=== PATIENT | female | born 1995 | race Caucasian/White ===

== ENCOUNTER 2018-07-11 08:36 | Emergency (ER) | payer BC ==
[2018-07-11] MEDS ORDERED: ACETAMINOPHEN 500 MG 500 MG TAB PO ONE (09:01)
[2018-07-11] MEDS ORDERED: ACETAMINOPHEN 500 MG 500 MG TAB ONE (09:03)
[2018-07-11] MEDS ORDERED: CYCLOBENZAPRINE 10 MG TAB PO ONE (09:06)
[2018-07-11] MEDS ORDERED: CYCLOBENZAPRINE 10 MG TAB ONE (09:07)
[2018-07-11 09:20] VITALS: BP 131/81; PULSE 101; RESP 16; TEMP 98.3; O2SAT 100
[2018-07-11 09:31] LABS: APPEARANCE,URINE Clear; BILIRUBIN,URINE NEGATIVE (NEGATIVE); COLOR,URINE Dark yellow; GLUCOSE, URINE (UA) NEGATIVE (NEGATIVE); KETONES,URINE NEGATIVE (NEGATIVE); LEUKOCYTE ESTERASE ,URINE NEGATIVE (NEGATIVE); NITRATE,URINE NEGATIVE (NEGATIVE); OCCULT BLOOD,URINE NEGATIVE (NEG-TRACE); PH,URINE 6.5; UROBILINOGEN,URINE 0.2 (0.2-1.0 EU)
[2018-07-11 09:36] LABS: BACTERIA 2+ (< 1+); CRYSTALS NEGATIVE (0-3 AVE/HPF); RBC,URINE 0-2 (0-3AV/HPF)
[2018-07-11] MEDS ORDERED: KETOROLAC TROMETHAMINE 30 MG/ML SOL IM ONE (10:06)
[2018-07-11] MEDS ORDERED: KETOROLAC TROMETHAMINE 30 MG/ML SOL ONE (10:08)
== END 2018-07-11 11:10 | disposition home or self-care (01) ==
LOC: ED 08:36
DX: S13.4XXA Sprain of ligaments of cervical spine, initial encounter (principal); V43.52XA Car driver injured in collision with other type car in traffic accident, initial encounter; S09.90XA Unspecified injury of head, initial encounter; M54.2 Cervicalgia; R40.2362 Coma scale, best motor response, obeys commands, at arrival to emergency department; R40.2142 Coma scale, eyes open, spontaneous, at arrival to emergency department; R40.2252 Coma scale, best verbal response, oriented, at arrival to emergency department
CPT/HCPCS: 70450; 72125; 81001; 84703; 96372; 99284; J1885; A9270-GY